=== PATIENT | female | born 1980 | race Two or more races ===

== ENCOUNTER 2023-06-21 17:13 | Emergency (ER) | payer OTHER ==
[~2023-06-21] VITALS: Ht 167.6 cm; Wt 90.7 kg
[2023-06-21] MEDS ORDERED: ZESTRIL2.5 MG PO (17:36)
[2023-06-21] MEDS ORDERED: HUMALOG100 UNIT/2 SQ (17:36)
[2023-06-21 19:26] LABS: PH,URINE 5.5 (5.0-8.0); URINE APPEARANCE Cloudy; URINE BILIRRUBIN Small (NEGATIVE); URINE BLOOD Trace; URINE COLOR Dark Yellow; URINE LEUKOCYTE Trace; URINE NITRATE Negative; URINE PROTEIN >=1000 (NEGATIVE)
[2023-06-21 19:29] LABS: URINE BACTERIA 1606.4 uL (0.0-1933); URINE EPITHELIAL CELLS 70.8 uL (0.0-38.8); URINE RBC 21.8 uL (0.0-20.8); URINE WBC 62.6 uL (0.0-23.2)
[2023-06-21 19:37] LABS: URINE GLUCOSE 500 MG/DL (NEGATIVE)
== END 2023-06-21 20:11 | disposition home or self-care (01) ==
LOC: ER 17:13
PROVIDERS: General Practice
DX: N39.0 Urinary tract infection, site not specified (principal); K29.70 Gastritis, unspecified, without bleeding; E11.9 Type 2 diabetes mellitus without complications; Z79.4 Long term (current) use of insulin; Z88.8 Allergy status to other drugs, medicaments and biological substances

== ENCOUNTER 2023-06-23 19:44 | Inpatient (IN) | payer OTHER ==
[~2023-06-23] VITALS: Ht 167.6 cm; Wt 90.7 kg
[~2023-06-23 19:44] MED LIST: HUMALOG100 UNIT/2 SQ; ZESTRIL2.5 MG PO
--- NOTE | 2023-06-23 19:55 | NUR ---
SE RECIBE FEMINA ALERTA Y ORIENTADA POR MACKENZIE ESFERAS, AMBULANDO. REFIERE QUE PRESENTA RASH DESDE NAIDA CUANDO COMENZO ANTIBIOTICO CEFDINIR.
--- NOTE | 2023-06-23 22:41 | NUR ---
PTE ALERTA Y ORIENTADA X3. SE REALIZAN MUESTRAS DE LAB LIGIA ORDEN MEDICA Y BAJO MEDIDAS ASEPTICAS.
[2023-06-23 23:16] LABS: PH,URINE 5.5 (5.0-8.0); URINE APPEARANCE Cloudy; URINE BILIRRUBIN Small (NEGATIVE); URINE BLOOD Moderate; URINE COLOR Dark Yellow; URINE LEUKOCYTE Negative; URINE NITRATE Negative; URINE PROTEIN >=1000 (NEGATIVE)
[2023-06-23 23:21] LABS: URINE BACTERIA 1326.6 uL (0.0-1933); URINE EPITHELIAL CELLS 63.9 uL (0.0-38.8); URINE RBC 15.9 uL (0.0-20.8); URINE WBC 128.6 uL (0.0-23.2)
[2023-06-23 23:28] LABS: HEMATOCRIT 32.7 % (36.0-45.00); MEAN CELL VOLUME 88.1 fL (80.00-100.00); MEAN CORPUSCULAR HEMOGLOBIN 29.6 pg (27.00-32.0); MEAN CORPUSCULAR HGB CONC 33.5 g/dl (32.0-36.0); RED BLOOD COUNT 3.71 M/uL (4.00-6.00); RED CELL DISTRIBUTION WIDTH 13.3 % (11.5-14.5)
[2023-06-23 23:35] LABS: CALCIUM 7.9 mg/dL (8.5-10.1); CREATININE SERUM 1.2 mg/dL (0.55-1.02); GFR 48.8; POTASSIUM 3.7 mEq/L (3.5-5.1)
[2023-06-24 00:43] LABS: PLATELET COUNT 11 K/uL (150-450)
[2023-06-24 00:51] LABS: URINE GLUCOSE 500 MG/DL (NEGATIVE)
--- NOTE | 2023-06-24 04:10 | NUR ---
SE EDUCA A PTE SOBRE TX MEDICO, SE ERIN MUESTRAS DE LABORATORIO UTILIZANDO MEDIDAS ASEPTICAS. SE COLOCA H/L ANNE DE EDEMA. SE COLOCA IV FLUIDS.
[2023-06-24 04:34] LABS: HEMATOCRIT 31.2 % (36.0-45.00); HEMOGLOBIN 10.8 g/dL (12.0-15.00); MEAN CORPUSCULAR HEMOGLOBIN 30.1 pg (27.00-32.0); MEAN CORPUSCULAR HGB CONC 34.6 g/dl (32.0-36.0); RED BLOOD COUNT 3.58 M/uL (4.00-6.00); RED CELL DISTRIBUTION WIDTH 13.7 % (11.5-14.5)
[2023-06-24 04:52] LABS: INR 1.01; PARTIAL THROMBOPLASTIN TIME 28.2 SECONDS (22.0-34.0); PROTHROMBIN TIME 10.6 SECONDS (9.0-11.5)
[2023-06-24 04:56] LABS: BILIRUBIN TOTAL 0.32 mg/dL (0.3-1.2); BILIRUBIN,CONJUGATED 0.15 mg/dL (0.0-0.2); BILIRUBIN,UNCONJUGATED 0.17 mg/dL (0.0-0.6); TOTAL PROTEIN 6.6 gm/dL (6.4-8.2)
[2023-06-24 04:57] LABS: ALBUMIN 2.1 gm/dL (3.4-5.0)
[2023-06-24 05:14] LABS: PLATELET COUNT 11 K/uL (150-450); PLT IN CITRATE 10 K/uL (150-450)
--- NOTE | 2023-06-24 07:01 | NUR ---
SE RECIBE PTE ALERTA Y ORIENTADA X3 CON UN 0.9 NSS PATENTE SE MANTIENE EN OBSERVACION POR CAMBIOS SIGNIFICATIVOS.
--- NOTE | 2023-06-24 09:38 | NUR ---
NOSE PUEDEN AC LOS CULTIVOS DE SANGRES YA QUE NO AHI DISPONIBLE EN LA INSTITUCION.
--- NOTE | 2023-06-24 10:02 | NUR ---
SE REQUIZO ORDEN DE PLAQUETAS Y SE LLEVO MUESTRAS AL BANCO DE PETRA.
--- NOTE | 2023-06-24 14:32 | NUR ---
PTE ALERTA,ESTABLE Y ORIENTADA.SE EDUCA SOBRE LA TRASNFUSION Y ESTA REFIERE ENTENDER.SE LE COLOCA LAS PLAQUETAS Y ESTA NO PRESENTA NINGUN TIPO DE REACCION
[2023-06-24 20:04] LABS: ALBUMIN 2.2 gm/dL (3.4-5.0); BILIRUBIN TOTAL 0.43 mg/dL (0.3-1.2); BILIRUBIN,CONJUGATED 0.16 mg/dL (0.0-0.2); BILIRUBIN,UNCONJUGATED 0.27 mg/dL (0.0-0.6); TOTAL PROTEIN 6.7 gm/dL (6.4-8.2)
[2023-06-24 20:20] LABS: HEMATOCRIT 30.5 % (36.0-45.00); HEMOGLOBIN 10.1 g/dL (12.0-15.00); MEAN CELL VOLUME 88.5 fL (80.00-100.00); MEAN CORPUSCULAR HEMOGLOBIN 29.3 pg (27.00-32.0); MEAN CORPUSCULAR HGB CONC 33.2 g/dl (32.0-36.0); RED BLOOD COUNT 3.45 M/uL (4.00-6.00); RED CELL DISTRIBUTION WIDTH 13.5 % (11.5-14.5)
[2023-06-24 20:23] LABS: PLATELET COUNT 56 K/uL (150-450)
[2023-06-24 20:55] LABS: INR 1.01; PROTHROMBIN TIME 10.6 SECONDS (9.0-11.5)
[2023-06-24 20:58] LABS: D DIMER 2.03 MG/L; PARTIAL THROMBOPLASTIN TIME 26.9 SECONDS (22.0-34.0)
[2023-06-25 13:33] LABS: MANUAL PLATELET COUNT 90
[2023-06-25 13:35] LABS: PLATELET ESTIMATE DECREASED (NORMAL)
[2023-06-26 05:28] LABS: HEMOGLOBIN 9.7 g/dL (12.0-15.00); MEAN CELL VOLUME 87.3 fL (80.00-100.00); MEAN CORPUSCULAR HEMOGLOBIN 29.3 pg (27.00-32.0); MEAN CORPUSCULAR HGB CONC 33.6 g/dl (32.0-36.0); RED BLOOD COUNT 3.32 M/uL (4.00-6.00); RED CELL DISTRIBUTION WIDTH 13.5 % (11.5-14.5)
[2023-06-26 06:01] LABS: ALKALINE PHOSPHATASE 123 U/L (50-136); ALT/SGPT 51 U/L (12-78); ANION GAP 7 (10.0-20.0); AST/SGOT 40 U/L (15-37); BILIRUBIN TOTAL 0.37 mg/dL (0.3-1.2); BLOOD UREA NITROGEN 10 mg/dL (7-18); BUN CREA RATIO 10 (7.0-25.0); C-REACTIVE PROTEIN < 0.29 MG/DL (0.00-0.29); CALCIUM 7.6 mg/dL (8.5-10.1); CARBON DIOXIDE 25 mEq/L (21-32); CHLORIDE 106 mmol/L (98-107); CREATININE SERUM 0.97 mg/dL (0.55-1.02); GFR 62.39; GLOBULINA 3.9 G/DL (2.4-3.5); GLUCOSE FASTING 233 mg/dL (65-100); LDH 426 U/L (84-246); OSMOLALITY SERUM 275 MOSM/KG (275-295); PHOSPHOROUS 2.2 mg/dL (2.5-4.9); POTASSIUM 4.04 mEq/L (3.5-5.1); SODIUM 134 mmol/L (136-145); TOTAL PROTEIN 5.9 gm/dL (6.4-8.2)
[2023-06-26 06:18] LABS: MANUAL PLATELET COUNT 30; PLATELET COUNT 18 K/uL (150-450)
[2023-06-27 08:14] LABS: HEMATOCRIT 26.3 % (36.0-45.00); MEAN CELL VOLUME 87.1 fL (80.00-100.00); MEAN CORPUSCULAR HGB CONC 34.3 g/dl (32.0-36.0); RED BLOOD COUNT 3.02 M/uL (4.00-6.00); RED CELL DISTRIBUTION WIDTH 13.6 % (11.5-14.5)
[2023-06-27 08:15] LABS: MEAN CORPUSCULAR HEMOGLOBIN 29.8 pg (27.00-32.0)
[2023-06-27 10:48] LABS: PLATELET COUNT 28 K/uL (150-450)
[2023-06-28 07:07] LABS: HOMOCYSTEINE 7.3 umol/L (0.0-14.5)
[2023-06-28 08:24] LABS: HEMATOCRIT 26.9 % (36.0-45.00); HEMOGLOBIN 9.2 g/dL (12.0-15.00); MEAN CELL VOLUME 87.3 fL (80.00-100.00); MEAN CORPUSCULAR HEMOGLOBIN 29.7 pg (27.00-32.0); RED BLOOD COUNT 3.09 M/uL (4.00-6.00); RED CELL DISTRIBUTION WIDTH 13.5 % (11.5-14.5)
[2023-06-28 10:42] LABS: PLATELET COUNT 42 K/uL (150-450)
[2023-06-29 13:06] LABS: BETA-2-MICROGLOBULINA 5.9 mg/L (0.6-2.4)
[2023-06-29 13:27] LABS: HEMATOCRIT 27.3 % (36.0-45.00); MEAN CELL VOLUME 87.6 fL (80.00-100.00); MEAN CORPUSCULAR HEMOGLOBIN 28.9 pg (27.00-32.0); RED BLOOD COUNT 3.12 M/uL (4.00-6.00); RED CELL DISTRIBUTION WIDTH 13.4 % (11.5-14.5)
[2023-06-29 13:30] LABS: PLATELET COUNT 66 K/uL (150-450)
[2023-06-30 11:41] LABS: HEMATOCRIT 27.9 % (36.0-45.00); HEMOGLOBIN 9.4 g/dL (12.0-15.00); MEAN CELL VOLUME 87.7 fL (80.00-100.00); MEAN CORPUSCULAR HEMOGLOBIN 29.5 pg (27.00-32.0); MEAN CORPUSCULAR HGB CONC 33.7 g/dl (32.0-36.0); RED BLOOD COUNT 3.18 M/uL (4.00-6.00); RED CELL DISTRIBUTION WIDTH 13.6 % (11.5-14.5)
[2023-06-30 11:42] LABS: PLATELET COUNT 69 K/uL (150-450)
== END 2023-06-30 17:46 | disposition home or self-care (01) | DRG 813 ==
LOC: ER 19:44 → MEDJ 06-24 17:57
PROVIDERS: General Practice; Internal Medicine Hematology & Oncology; Internal Medicine Infectious Disease; ADMIT Specialist; ATTEND Specialist
PROC: 30233R1 Transfusion of Nonautologous Platelets into Peripheral Vein, Percutaneous Approach (ICD-10-PCS; principal; 2023-06-24)
PROC: BW40ZZZ Ultrasonography of Abdomen (ICD-10-PCS; 2023-06-25)
DX: D69.59 Other secondary thrombocytopenia (principal); A90 Dengue fever [classical dengue]; N39.0 Urinary tract infection, site not specified; D50.0 Iron deficiency anemia secondary to blood loss (chronic); B34.9 Viral infection, unspecified; N93.8 Other specified abnormal uterine and vaginal bleeding; R16.1 Splenomegaly, not elsewhere classified; I11.9 Hypertensive heart disease without heart failure; E11.9 Type 2 diabetes mellitus without complications; Z79.4 Long term (current) use of insulin

== ENCOUNTER 2024-08-10 16:47 | Emergency (ER) | payer OTHER ==
[~2024-08-10] VITALS: Ht 167.6 cm; Wt 90.7 kg
[2024-08-10 17:01] VITALS: BP 159/81; O2SAT 97
[2024-08-10] MEDS ORDERED: KETOROLAC TROMETHAMINE 60 MG VIAL IM ONE (18:30)
== END 2024-08-10 21:07 | disposition home or self-care (01) ==
LOC: ER 16:49
DX: M79.671 Pain in right foot (principal); Z88.8 Allergy status to other drugs, medicaments and biological substances; I10 Essential (primary) hypertension; M77.31 Calcaneal spur, right foot

== ENCOUNTER 2025-03-25 15:26 | Emergency (ER) | payer OTHER ==
[~2025-03-25] VITALS: Ht 167.6 cm; Wt 90.7 kg
[2025-03-25] MEDS ORDERED: AMOX-CLAV 875-1 EACH PO (18:42)
[2025-03-25] MEDS ORDERED: DIPHTH,PERTUSS(ACELL),TET VAC 0.5 ML SYRINGE IM ONE (18:45)
[2025-03-25] MEDS ORDERED: CEFTRIAXONE SODIUM 1,000 MG VIAL IM ONE (18:45)
== END 2025-03-25 19:21 | disposition home or self-care (01) ==
LOC: ER 15:26
DX: S60.470A Other superficial bite of right index finger, initial encounter (principal); W54.0XXA Bitten by dog, initial encounter; Y93.89 Activity, other specified; Y92.89 Other specified places as the place of occurrence of the external cause; Z88.8 Allergy status to other drugs, medicaments and biological substances; I10 Essential (primary) hypertension; E11.9 Type 2 diabetes mellitus without complications; Z79.4 Long term (current) use of insulin